=== PATIENT | male | born 1950 | race Hispanic/Latino ===

== ENCOUNTER 2018-01-17 08:11 | Day surgery (SDC) | payer MEDICARE, MEDICAID ==
[2017-09-18 19:45] VITALS: BMI 25.7
--- NOTE | 2018-01-17 10:25 | CP.SDSHP ---
Same Day Surgery H & P - History Proposed Procedure: US guided FNA of right parotid mass Pre-Op Diagnosis: Right parotid mass. - Allergies Allergies: Allergies No Known Allergies Allergy (Verified 06/13/17 17:57) - Physical Exam Vital Signs: Vital Signs 01/17/18 08:14 Temperature 97.4 F L Pulse Rate 59 L Respiratory 20 Rate Blood Pressure 117/76 O2 Sat by Pulse 95 Oximetry Mental Status: Alert & Oriented x3 Neuro: WNL Heart: WNL - Impression Impression: Pt with a 3 cm right parotid mass referered for FNA. Plan US guideD FNA. Pt. Evaluated Today:Candidate for Anesthesia & Procedure: No - Date & Time Date: 01/17/18 Time: 10:00 Short Stay Discharge - Short Stay Discharge Admitting Diagnosis/Reason for Visit: DX: PAROTID MASS Disposition: HOME/ ROUTINE
--- NOTE | 2018-01-17 10:26 | PCM.SURG1 ---
Surgeon's Initial Post Op Note - Surgeon's Notes Surgeon: Nacho Meier MD Arboreal Scientist: NONE Type of Anesthesia: Local Pre-Operative Diagnosis: Right parotid mass Operative Findings: US showed a complex right parotid mass Post-Operative Diagnosis: Right parotid mass Operation Performed: US guided FNA Specimen/Specimens Removed: 25 g FNA x 4 Estimated Blood Loss: EBL {In ML}: 1 Blood Products Given: N/A Drains Used: No Drains Post-Op Condition: Fair Date of Surgery/Procedure: 01/17/18 Time of Surgery/Procedure: 10:20
[2018-01-17 10:37] VITALS: BP 127/74; PULSE 72; RESP 15; TEMP 97.5; O2SAT 97
--- NOTE | 2018-01-18 13:32 | US ---
PROCEDURE: DATE OF PROCEDURE: 01/18/2018 PROCEDURE: 1. Ultrasound-guided FNA of a right parotid mass, CPT 79648 2. Ultrasound guidance for procedure, CPT 55159 Medications: 3cc 1 percent lidocaine HISTORY: right parotid mass TECHNIQUE: Following informed consent, the right parotid area was marked. Procedure time out was called and the parotid area was prepped and draped in the usual sterile manner. A limited ultrasound was performed of the right parotid which shows a 3.1 centimeter right parotid mass. The mass is hypoechoic. Ultrasound-guided FNA was performed. Under ultrasound guidance, a 25 gauge needle was advanced into the nodule. A FNA sample was placed on slides and sent for routine pathology AND flow cytometry. Four passes were made into the nodule. A post biopsy ultrasound showed no hematoma. IMPRESSION: Ultrasound-guided FNA right parotid mass.
== END 2018-01-17 10:51 | disposition home or self-care (01) ==
LOC: C.SPRAD 08:11
PROVIDERS: ATTEND Radiology Vascular & Interventional Radiology
DX: D11.0 Benign neoplasm of parotid gland (principal)